=== PATIENT | female | born 1970 | race Two or more races ===

== ENCOUNTER 2017-08-03 09:54 | Emergency (ER) | payer MEDICAID ==
[~2017-08-03] VITALS: Ht 162.6 cm; Wt 56.7 kg
[2017-08-03 09:59] VITALS: BP 115/65
[2017-08-03] MEDS ORDERED: IBUPROFEN400 MG ORAL (10:20)
[2017-08-03 10:49] VITALS: BP 115/70
--- NOTE | 2017-08-06 14:52 | Emergency Room Report ---
History of Present Illness General Chief Complaint: Pain Source: Patient Present Illness HPI Patient is a 47-year-old female who presented after increased upper back pain after increased exercise. Patient reports having been doing heavy exercise and subsequent having increased muscle soreness to her upper back. Have patient denies any fever. She denies other trauma. She denies any chest pain or pressure. Allergies: Coded Allergies: No Known Allergies (Unverified , 08/03/17) Patient History Past Medical History: see triage record Reviewed Nursing Documentation: PMH: Agreed; PSxH: Agreed Nursing Documentation-PM Past Medical History: No Stated History Review of Systems All Other Systems: negative except mentioned in HPI Physical Exam Vital Signs Date Time Temp Pulse Resp B/P (MAP) Pulse Ox O2 Delivery O2 Flow Rate FiO2 08/03/17 09:59 98.9 74 20 115/65 98 Room Air 99.0 General Appearance: well appearing, no apparent distress, alert, GCS 15 Head: normocephalic, atraumatic ENT: hearing grossly normal, normal voice Neck: full range of motion, supple Respiratory: lungs clear, normal breath sounds, no respiratory distress, speaking full sentences Cardiovascular #1: normal peripheral pulses, no edema Gastrointestinal: normal inspection, soft Musculoskeletal: normal inspection, no calf tenderness, other - tenderness over trapezius muscle, no echymosis noted Neurologic: normal inspection, alert, oriented x3, responsive, driver guide III-XII nml as tested, motor strength/tone normal, normal gait Psychiatric: mood/affect normal Skin: no rash Medical Decision Making Diagnostic Impression: Primary Impression: Muscle strain ER Course Patient is a 47-year-old female who presented after increased back pain after increased exercise. The differential diagnosis included was not limited to muscle strain, fracture, tendon injury, arthritis among others. Patient has a benign exam and does not appear to require any further imaging or laboratory testing at this time. The patient appears to have evidence of a muscle strain. The patient is advised to follow up with primary care doctor in 1-2 days. Patient is advised to return if any worsening condition or if any changes in status that are concerning. This report is dictated with [employer] rubber compounder mixer software which may occasionally lead to discrepancies related to use of this software. Last Vital Signs Date Time Temp Pulse Resp B/P (MAP) Pulse Ox O2 Delivery O2 Flow Rate FiO2 08/03/17 10:49 65 16 115/70 98 Room Air 08/03/17 10:49 97.2 Status: improved Disposition: HOME, SELF-CARE Condition: Stable Scripts Ibuprofen* (MOTRIN*) 400 Mg Tablet 400 MG ORAL Q8H, #30 TAB 0 Refills Prov: Hakan Mcdonough 08/03/17 Referrals: NOT CHOSEN IPA/MD,REFERRING (PCP) Patient Instructions: Muscle Strain Hakan Mcdonough Aug 06, 2017 14:52
== END 2017-08-03 10:50 | disposition home or self-care (01) ==
LOC: EMR 10:35
DX: M54.6 Pain in thoracic spine (principal); S29.012A Strain of muscle and tendon of back wall of thorax, initial encounter; X50.0XXA Overexertion from strenuous movement or load, initial encounter; Y93.9 Activity, unspecified; Y92.9 Unspecified place or not applicable
CPT/HCPCS: 99283

== ENCOUNTER 2018-06-02 09:19 | Emergency (ER) | payer MEDICAID ==
[~2018-06-02] VITALS: Ht 160 cm; Wt 55.3 kg
[~2018-06-02 09:19] MED LIST: IBUPROFEN400 MG ORAL
[2018-06-02 09:28] VITALS: BP 123/75
--- NOTE | 2018-06-02 09:30 | NUR ---
ED Nurse Note: Pt. AAOx4. ambulatory. Pt came in to ER due to growth on posterior side of Rt hand.
[2018-06-02] MEDS ORDERED: [UNRECOGNIZED DRUG - OTHER] TP (09:42)
--- NOTE | 2018-06-02 09:45 | Emergency Room Report ---
History of Present Illness General Chief Complaint: Skin Rash/Abscess Source: Patient Present Illness HPI 47-year-old female with wart to right knuckle at middle finger for 2 months. Patient tried [id number] medication without improvement. Denies any pus drainage, redness to area. Patient does not a primary care doctor or power checker. States pain with pressure to area. Allergies: Coded Allergies: No Known Allergies (Unverified , 08/03/17) Patient History Past Medical History: none Past Surgical History: none Pertinent Family History: none Social History: Denies: smoking, alcohol use, drug use Now: No Immunizations: UTD Reviewed Nursing Documentation: PMH: Agreed; PSxH: Agreed Nursing Documentation-PMH Past Medical History: No History, Except For Review of Systems All Other Systems: negative except mentioned in HPI Physical Exam Vital Signs Date Time Temp Pulse Resp B/P (MAP) Pulse Ox O2 Delivery O2 Flow Rate FiO2 06/02/18 09:28 98.1 57 20 123/75 98 Sp02 EP Interpretation: reviewed, normal General Appearance: normal inspection, well appearing, no apparent distress, alert, GCS 15, non-toxic Head: normocephalic, atraumatic Eyes: bilateral eye PERRL, bilateral eye EOMI ENT: normal ENT inspection, hearing grossly normal, normal pharynx, no angioedema, normal voice, TMs + canals normal, uvula midline, moist mucus membranes Neck: normal inspection, full range of motion, supple, thyroid normal, no meningismus, no bony tend Respiratory: normal inspection, lungs clear, normal breath sounds, no rhonchi, no respiratory distress, no retraction, no accessory muscle use, no wheezing, speaking full sentences Cardiovascular #1: regular rate, rhythm, no edema, no JVD, normal capillary refill Gastrointestinal: normal inspection, normal bowel sounds, non tender, soft, no mass, no peritonitis, non-distended, no guarding, no hernia, no pulsatile mass Genitourinary: no CVA tenderness Musculoskeletal: normal inspection, back normal, normal range of motion, no calf tenderness, pelvis stable, Eduin's Sign negative Neurologic: normal inspection, alert, oriented x3, responsive, vacuum filter operator III-XII nml as tested, motor strength/tone normal, cerebellar normal, normal gait, speech normal Psychiatric: normal inspection, judgement/insight normal, mood/affect normal, no suicidal/homicidal ideation, no delusions Skin: normal inspection, normal color, no rash, other - Right hand: wart at 2nd knuckle. No erytmea or swelling Lymphatic: normal inspection, no adenopathy Medical Decision Making Diagnostic Impression: Primary Impression: Wart Qualified Codes: B07.9 - Viral wart, unspecified ER Course VSS, afebrile Well appearing Skin wart on hand Recommended Rx OTC salicylate acid Derm followup DC home Last Vital Signs Date Time Temp Pulse Resp B/P (MAP) Pulse Ox O2 Delivery O2 Flow Rate FiO2 06/02/18 09:28 98.1 57 20 123/75 98 Status: improved Disposition: HOME, SELF-CARE Condition: Improved Scripts Salicylic Acid (Liquid [place] & Callus Remover) 15 Ml Liquid 15 ML TP DAILY for 7 Days, #1 UNIT Prov: AKASH CAI M.D. 06/02/18 Patient Instructions: Cryosurgery for Skin Conditions, [id number] AKASH CAI M.D. Jun 02, 2018 09:45
[2018-06-02 10:00] VITALS: BP 118/75
--- NOTE | 2018-06-02 10:00 | NUR ---
ED Nurse Note: Pt has growth onposterior side of Rt hand.
== END 2018-06-02 10:00 | disposition home or self-care (01) ==
LOC: EMR 09:36
DX: B07.9 Viral wart, unspecified (principal)
CPT/HCPCS: 99282

== ENCOUNTER 2019-01-04 14:29 | Emergency (ER) | payer MEDICAID ==
[~2019-01-04] VITALS: Ht 149.9 cm; Wt 58.1 kg
[~2019-01-04 14:29] MED LIST changes: +[UNRECOGNIZED DRUG - OTHER] TP
[2019-01-04] MEDS ORDERED: NKM (14:48)
--- NOTE | 2019-01-04 14:59 | NUR ---
ED Nurse Note: PT WALKED IN TO ER TODAY FROM HOME. AOX4. PT C/O CHRONIC RIGHT ELBOW PAIN, 12/04. PT DENIES ANY INJURY OR TRAUMA. FULL ROM OF ELBOW AND DIGITS. CIRCULATION AND SENSATION INTACT. PT DENIES NUMBNESS OR TINGLING. MUSCLE STRENGTH 5/5.
[2019-01-04 15:00] VITALS: BP 116/74
--- NOTE | 2019-01-04 15:13 | Emergency Room Report ---
History of Present Illness General Chief Complaint: Upper Extremity Injury Source: Patient Present Illness HPI 48-year-old female presents to the emergency department complaining of 8 out of 10 severity progressive pain in the muscles of the right forearm radiating outward towards the elbow. 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 Patient the attempts to lift heavy objects or bends her elbow she feels pain. Patient reports on occasion she will have some numbness and tingling in the fingers. Patient reports she has a history of arthritis. Patient denies trauma or fall. She denies swollen, erythematous, warm joints. She denies fevers or chills. Denies neck pain or shoulder pain. Allergies: Coded Allergies: No Known Allergies (Unverified , 08/03/17) Patient History Past Medical History: see triage record Past Surgical History: none Pertinent Family History: none Last Menstrual Period: now Now: No Reviewed Nursing Documentation: PMH: Agreed; PSxH: Agreed Nursing Documentation-PMH Past Medical History: No Stated History Review of Systems All Other Systems: negative except mentioned in HPI Physical Exam Vital Signs Date Time Temp Pulse Resp B/P (MAP) Pulse Ox O2 Delivery O2 Flow Rate FiO2 01/04/19 14:43 98.1 74 20 110/73 (85) 97 Room Air Sp02 EP Interpretation: reviewed, normal General Appearance: no apparent distress, alert, GCS 15, non-toxic Head: normocephalic, atraumatic Eyes: bilateral eye normal inspection, bilateral eye PERRL ENT: hearing grossly normal, normal voice Neck: full range of motion Respiratory: lungs clear, normal breath sounds, speaking full sentences Cardiovascular #1: regular rate, rhythm, normal capillary refill Cardiovascular #2: 2+ radial (R), 2+ radial (L) Musculoskeletal: back normal, gait/station normal, normal range of motion, tender - TTP to the supinator musculature of the right forearm, and brachioradialis muscle. no localized bony ttp, no obvious deformities, FROM of fingers, wrist, elbow and shoulder of right extremity. Neurologic: alert, oriented x3, responsive, motor strength/tone normal, sensory intact, speech normal, grossly normal Psychiatric: judgement/insight normal Skin: no rash, normal color Lymphatic: no adenopathy Medical Decision Making PA Attestation Dr. Palmer is my supervising Physician whom patient management has been discussed with. Diagnostic Impression: Primary Impression: Muscle strain of forearm Qualified Codes: S56.911A - Strain of unspecified muscles, fascia and tendons at forearm level, right arm, initial encounter Additional Impression: Overuse syndrome ER Course 48-year-old female presents to the emergency department complaining of 8 out of 10 severity progressive pain in the muscles of the right forearm radiating outward towards the elbow. 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 Patient the attempts to lift heavy objects or bends her elbow she feels pain. Patient reports on occasion she will have some numbness and tingling in the fingers. Patient reports she has a history of arthritis. Patient denies trauma or fall. She denies swollen, erythematous, warm joints. She denies fevers or chills. Denies neck pain or shoulder pain. Ddx considered but are not limited to Fracture, dislocation, contusion, Sprain/ Strain/Spasm, overuse syndrome/ tendonitis Vital signs: are WNL, pt. is afebrile H&PE are most consistent with an overuse tendonitis, no suspicion for fractures. ORDERS: - X-ray not warranted at this time, no bony ttp, the dx is clinical. ED INTERVENTIONS: -Right volar wrist Splint applied by engineering laboratory technician. Pt. remains neurovascularly intact. -I do not identify an emergent condition at this time. With current presentation , pt. is stable for close outpatient follow up and conservative treatment. D/ w pt. to return promptly to ED with worsening or new symptoms.- Pt. verbalizes' understanding and agreement with proposed treatment plan. DISCHARGE: At this time pt. is stable for d/c to home. Will provide printed patient care instructions, and any necessary prescriptions. Care plan and follow up instructions have been discussed with the patient prior to discharge. Last Vital Signs Date Time Temp Pulse Resp B/P (MAP) Pulse Ox O2 Delivery O2 Flow Rate FiO2 01/04/19 15:00 98.2 78 18 116/74 99 Room Air Disposition: HOME, SELF-CARE Condition: Stable Scripts Diclofenac Sodium (VOLTAREN) 100 Gm Gel..gram. 1 APPLIC TP Q6HR, #100 GM Prov: Maricruz Smith 01/04/19 Ibuprofen* (MOTRIN*) 600 Mg Tablet 600 MG ORAL THREE TIMES A DAY, #30 TAB 0 Refills Prov: Maricruz Smith 01/04/19 Patient Instructions: Muscle Strain Additional Instructions: Take medications as directed. Follow up with a Primary Care Provider in 3-5 days, even if your symptoms have resolved. --Please review list of primary care clinics, if you do not already have a primary care provider Return sooner to ED if new symptoms occur, or current symptoms become worse. - Please note that this Emergency Department Report was dictated using [employer] dish technician technology software, occasionally this can lead to erroneous entry secondary to interpretation by the dictation equipment. Maricruz Smith Jan 04, 2019 15:13
[2019-01-04] MEDS ORDERED: VOLTAREN100 G1 TP (15:15)
[2019-01-04] MEDS ORDERED: IBUPROFEN600 MG ORAL (15:15)
--- NOTE | 2019-01-04 15:18 | NUR ---
ED Nurse Note: PT SITTING PEACEFULLY IN BED IN NAD. AOX4. PRESCRIPTION AND DISCHARGE PAPERWORK EXPLAINED TO PT. PT VERBALIZES UNDERSTANDING AND ALL QUESTIONS ANSWERED. PRESCRIPTION AND DISCHARGE PAPERWORK GIVEN TO PT AND ID NIMCO REMOVED. PT WALKED OUT OF ER WITH STEADY GAIT AND ALL BELONGINGS.
[2019-01-04 15:19] VITALS: BP 118/72
[2019-01-04] MEDS ORDERED: Ketorolac 30mg Inj IM ONE (15:30)
== END 2019-01-04 15:30 | disposition home or self-care (01) ==
LOC: EMR 15:12
DX: S56.911A Strain of unspecified muscles, fascia and tendons at forearm level, right arm, initial encounter (principal); M70.80 Other soft tissue disorders related to use, overuse and pressure of unspecified site; M19.90 Unspecified osteoarthritis, unspecified site; X58.XXXA Exposure to other specified factors, initial encounter; Y93.H9 Activity, other involving exterior property and land maintenance, building and construction; Y92.9 Unspecified place or not applicable; Y99.0 Civilian activity done for income or pay
CPT/HCPCS: 96372; J1885; Z7502; 29125; 99283